=== PATIENT | female | born 1965 | race Caucasian/White ===

== ENCOUNTER 2017-01-27 00:09 | Emergency (ER) | payer OTHER ==
[2017-01-27 00:37] LABS: BASOPHIL 0.7 % (0-2); EOSINOPHIL 3.4 % (0-5); HCT 37.5 % (37.0-47.0); LYMPHOCYTE 34.2 % (15-48); MCH 29.4 pg (25.0-31.0); MCHC 34.7 g/dL (32.0-36.0); MCV 84.8 fL (78.0-100.0); MONOCYTE 8.6 % (0-12); MPV 10.7 fL (6.0-9.5); NEUTROPHIL 53.1 % (41-80); PLT 197 K/uL (150-400); RBC 4.42 M/uL (4.20-5.40); RDW 13.9 % (11.5-14.0); WBC 7.1 K/uL (4.0-10.5)
[2017-01-27 01:01] LABS: LACTIC ACID 1.2 mmol/L (0.5-2.2)
[2017-01-27 01:03] LABS: ALBUMIN 3.9 g/dL (3.5-5.0); BILIRUBIN - TOTAL 0.2 mg/dL (0.1-1.0); GLOBULIN (CALCULATION) 3.1 g/dL (2.2-4.2); POTASSIUM 4.2 mmol/L (3.5-5.1)
[2017-01-27 01:18] LABS: BILIRUBIN NEGATIVE (NEGATIVE); BLOOD TRACE-INTACT Ery/uL (NEGATIVE); CLARITY SLIGHTLY HAZY (CLEAR); COLOR YELLOW (YELLOW); GLUCOSE (U) NORMAL (NORMAL); KETONE (U) NEGATIVE (NEGATIVE); LEUKOCYTES NEGATIVE Leu/uL (NEGATIVE); NITRITE NEGATIVE (NEGATIVE); PROTEIN NEGATIVE (NEGATIVE); UROBILINOGEN 0.2 mg/dL (0.2-1.0)
[2017-01-27 01:22] LABS: BACTERIA TRACE; URINARY RBC RARE; URINARY WBC RARE
== END 2017-01-27 04:55 | disposition home or self-care (01) ==
LOC: FER 00:09
PROVIDERS: Emergency Medicine Emergency Medical Services
DX: R10.11 Right upper quadrant pain (principal); R10.12 Left upper quadrant pain; R11.2 Nausea with vomiting, unspecified; E86.9 Volume depletion, unspecified; F17.210 Nicotine dependence, cigarettes, uncomplicated; Z88.0 Allergy status to penicillin; Z88.5 Allergy status to narcotic agent; Z90.49 Acquired absence of other specified parts of digestive tract; Z90.710 Acquired absence of both cervix and uterus; Z98.51 Tubal ligation status
CPT/HCPCS: 36415; 74022; 80053; 81001; 82150; 83605; 83690; 85025; J1170; J1885; J1980; J2405; Q9967

== ENCOUNTER 2017-02-14 16:59 | Emergency (ER) | payer OTHER ==
[2017-02-14 18:11] LABS: BASOPHIL 0.7 % (0-2); BILIRUBIN NEGATIVE (NEGATIVE); BLOOD 1+ Ery/uL (NEGATIVE); CLARITY CLEAR (CLEAR); COLOR STRAW (YELLOW); EOSINOPHIL 1.3 % (0-5); GLUCOSE (U) NORMAL (NORMAL); HCT 35.6 % (37.0-47.0); HGB 12.3 g/dl (12.5-16.0); KETONE (U) NEGATIVE (NEGATIVE); LEUKOCYTES NEGATIVE Leu/uL (NEGATIVE); LYMPHOCYTE 22.3 % (15-48); MCH 28.7 pg (25.0-31.0); MCHC 34.6 g/dL (32.0-36.0); MONOCYTE 7.7 % (0-12); NITRITE NEGATIVE (NEGATIVE); PLT 222 K/uL (150-400); PROTEIN NEGATIVE (NEGATIVE); RBC 4.29 M/uL (4.20-5.40); RDW 13.7 % (11.5-14.0); SPECIFIC GRAVITY <=1.005 (1.001-1.030); UROBILINOGEN 0.2 mg/dL (0.2-1.0); WBC 6.9 K/uL (4.0-10.5)
[2017-02-14 18:32] LABS: CREATININE 0.8 mg/dL (0.5-1.0); POTASSIUM 3.7 mmol/L (3.5-5.1)
[2017-02-14 18:36] LABS: URINARY RBC RARE
== END 2017-02-14 20:20 | disposition home or self-care (01) ==
LOC: FER 16:59
PROVIDERS: Emergency Medicine
DX: R91.1 Solitary pulmonary nodule (principal); R11.2 Nausea with vomiting, unspecified; R10.9 Unspecified abdominal pain; M54.5 Low back pain; R19.7 Diarrhea, unspecified; F17.210 Nicotine dependence, cigarettes, uncomplicated; Z88.0 Allergy status to penicillin; Z88.5 Allergy status to narcotic agent; Z90.89 Acquired absence of other organs
CPT/HCPCS: 36415; 80048; 81001; 85025; J1885; J2405